=== PATIENT | female | born 1950 | race Caucasian/White ===

== ENCOUNTER → 2023-11-11 06:29 | Day surgery (SDC) | payer MEDICARE, OTHER, SELFPAY ==
[2023-11-11 08:29] VITALS: BMI 28.1
[2023-11-11 10:02] LABS: % Basophils 0.6 % (0-2); % Eosinophils 2.3 % (0-6); % Immature Granulocytes 0.3 % (0-0.5); % Lymphocytes 30.8 % (20.5-51.1); % Monocytes 10.4 % (1.7-9.3); % Neutrophils 55.6 % (42.2-75.2); Absolute Eosinophils 0.2 10^3/uL (0-0.7); Absolute Lymphocytes 2.2 10^3/uL (1.2-3.4); Absolute Monocytes 0.7 10^3/uL (0.1-0.6); Hematocrit 38.3 % (37.0-47.0); Hemoglobin 12.8 g/dL (12.0-16.0); Mean Corp Hgb Conc. 33.4 g/dL (33.0-37.0); Mean Corpuscular Hgb 32.2 pg (27.0-31.0); Mean Corpuscular Volume 96.2 fL (81.0-99.0); Nucleated Red Blood Cells % 0 %; Platelet Count 289 10^3/uL (130-400); Red Blood Cell Count 3.98 10^6/uL (4.20-5.40); Red Cell Dist. Width 12.1 % (11.5-14.5); White Blood Cell Count 7.1 10^3/uL (4.8-10.8)
[2023-11-11 11:05] LABS: Blood Urea Nitrogen 21 mg/dl (7-17); Calcium 9.3 mg/dl (8.4-10.2); Carbon Dioxide 26 mmol/L (22-30); Chloride 104 mmol/L (98-107); Estimated Creatinine Clearance 59 ml/min; Glucose 91 mg/dl (70-99); Potassium 4.4 mmol/L (3.5-5.1); Sodium 137 mmol/L (135-145); eGFR > 60.00
== END ==
LOC: SDS 06:29
PROVIDERS: ATTENDING PHYSICIAN Obstetrics & Gynecology; FAMILY PHYSICIAN Internal Medicine
DX: C53.9 Malignant neoplasm of cervix uteri, unspecified (principal); Z53.8 Procedure and treatment not carried out for other reasons
CPT/HCPCS: 58558; 36415; 71046; 80048; 85025; 93005

== ENCOUNTER 2024-01-16 08:21 | Day surgery (SDC) | payer MEDICARE, OTHER, SELFPAY ==
[2024-01-16] VITALS (17 sets, daily range): BP systolic 84–134; BP diastolic 50–85
[2024-01-16] MEDS: NORMOSOL-R 1000 IV (08:45)
== END 2024-01-16 13:43 | disposition home or self-care (01) ==
LOC: SDS 08:21
PROVIDERS: ATTENDING PHYSICIAN Obstetrics & Gynecology; FAMILY PHYSICIAN Internal Medicine
DX: N88.2 Stricture and stenosis of cervix uteri (principal)
CPT/HCPCS: 58120